=== PATIENT | female | born 1950 | race Caucasian/White ===

== ENCOUNTER 2017-06-30 06:19 | Day surgery (SDC) | payer MEDICARE, OTHER ==
[2017-06-30] MEDS ORDERED: Propofol 10 mg/ml Inj (20 ML) ONE (08:09)
[2017-06-30] MEDS ORDERED: ePHEDrine 50 mg/ml Inj ONE (08:10)
[2017-06-30] MEDS ORDERED: Lidocaine Hydrochloride 5 ML INJ ONE (08:11)
--- NOTE | 2017-06-30 08:12 | CP.SDSHP ---
Same Day Surgery H & P - History Proposed Procedure: Colonoscopy Pre-Op Diagnosis: Screening exam - Previous Medical/Surgical History Cardiac: Hypertension Endocrine/Metabolic: Diabetes Comments: cholesterol, GERD Previous Surgical History: DORIAN/BSO - Allergies Allergies: Allergies No Known Allergies Allergy (Unverified 11/04/13 13:34) - Current Medications Current Medications: reviewed, per reconciliation - Physical Exam General Appearance: wdwn nad Vital Signs: Vital Signs 06/30/17 06/30/17 06:38 08:00 Temperature 96.7 F L 96.7 F L Pulse Rate 64 64 Respiratory 20 20 Rate Blood Pressure 150/88 150/88 O2 Sat by Pulse 98 98 Oximetry Mental Status: Alert & Oriented x3 Heart: WNL Lungs: WNL GI: WNL - {Optional Preform as Required} Abdomen: WNL - Impression Impression: screenong for colorectal neoplasm Pt. Evaluated Today:Candidate for Anesthesia & Procedure: Yes - Date & Time Date: 06/30/17 Time: 08:12 Short Stay Discharge - Short Stay Discharge Admitting Diagnosis/Reason for Visit: SCREENING Disposition: HOME/ ROUTINE
[2017-06-30 08:41] VITALS: TEMP 98
[2017-06-30 09:13] VITALS: RESP 16
[2017-06-30 09:16] VITALS: BP 139/81; PULSE 62; O2SAT 100
== END 2017-06-30 09:40 | disposition home or self-care (01) ==
LOC: C.ENDO 06:19
PROVIDERS: ATTEND Internal Medicine Gastroenterology
DX: K57.90 Diverticulosis of intestine, part unspecified, without perforation or abscess without bleeding (principal); K64.8 Other hemorrhoids
CPT/HCPCS: 45378; J2704

== ENCOUNTER 2017-12-29 06:33 | Day surgery (SDC) | payer MEDICARE, OTHER ==
[2017-12-29] MEDS ORDERED: Lactated Ringer's 1,000 ML IV ONE (08:36)
[2017-12-29] MEDS ORDERED: Propofol 10 mg/ml Inj (20 ML) ONE ×2 (08:45→08:54)
--- NOTE | 2017-12-29 08:45 | CP.SDSHP ---
Same Day Surgery H & P - History Proposed Procedure: EGD/Bx Pre-Op Diagnosis: Dyspepsia - Previous Medical/Surgical History Cardiac: Hypertension Endocrine/Metabolic: Diabetes Comments: Cholesterol Previous Surgical History: DORIAN/BSO - Allergies Allergies: Allergies No Known Allergies Allergy (Unverified 11/04/13 13:34) - Current Medications Current Medications: reviewed, per reconciliation - Physical Exam General Appearance: wdwn nad Vital Signs: Vital Signs 12/29/17 07:04 Temperature 96.9 F L Pulse Rate 62 Respiratory 17 Rate Blood Pressure 147/89 O2 Sat by Pulse 99 Oximetry Mental Status: Alert & Oriented x3 Heart: WNL Lungs: WNL GI: WNL - {Optional Preform as Required} Abdomen: WNL - Impression Impression: Dyspepsia Pt. Evaluated Today:Candidate for Anesthesia & Procedure: Yes - Date & Time Date: 12/29/17 Time: 08:45 Short Stay Discharge - Short Stay Discharge Admitting Diagnosis/Reason for Visit: DYSPEPSIA Disposition: HOME/ ROUTINE
[2017-12-29 09:23] VITALS: TEMP 97.5; O2SAT 100
[2017-12-29 09:55] VITALS: BP 143/91; PULSE 66; RESP 13
== END 2017-12-29 10:15 | disposition home or self-care (01) ==
LOC: C.ENDO 06:33
PROVIDERS: ATTEND Internal Medicine Gastroenterology
DX: K30 Functional dyspepsia (principal); K31.7 Polyp of stomach and duodenum; K29.70 Gastritis, unspecified, without bleeding
CPT/HCPCS: 43239; 82948; 88305; J2704; J7120